=== PATIENT | female | born 1935 | race Caucasian/White ===

== ENCOUNTER → 2017-05-10 | Outpatient (CLI) | payer OTHER ==
[~2017-05-10] MED LIST: REGADENOSON 0.4 MG/5 ML PF SYG IVP SCH
== END | disposition home or self-care (01) ==
LOC: SHCH 08:39
PROVIDERS: ATTEND Internal Medicine Cardiovascular Disease
DX: I50.32 Chronic diastolic (congestive) heart failure (principal)
CPT/HCPCS: 78452; 93017; 96374; A9500 ×2; J2785

== ENCOUNTER → 2018-11-14 | Outpatient (CLI) | payer OTHER | END | disposition home or self-care (01) | LOC: RAH 08:58 | PROVIDERS: ATTEND Internal Medicine | DX: M17.11 Unilateral primary osteoarthritis, right knee (principal) | CPT/HCPCS: 73562 ==

== ENCOUNTER 2020-12-14 23:55 | Emergency (ER) | payer OTHER ==
[~2020-12-14] VITALS: Ht 162.6 cm; Wt 72.6 kg
[~2020-12-14 23:55] MED LIST changes: +AMLO5TAB4 PO; +APIX5TAB PO; +CEPH500B PO; +CLOP75TA14 PO; +LOSA50TA2 PO; +METO50 PO; +OMEP20CA12 PO; +PRAV40TA3 PO; -REGADENOSON 0.4 MG/5 ML PF SYG IVP SCH; +fish oil; +flaxseed
[2020-12-15] MEDS ORDERED: MORPHINE 4 MG SYG IV ONE (02:00)
[2020-12-15] MEDS ORDERED: ONDANSETRON 4MG INJ IVP ONE (02:00)
[2020-12-15 02:11] VITALS: BP 177/60
[2020-12-15 02:32] LABS: APPEARANCE,URINE Clear (CLEAR); BILIRUBIN,URINE Negative (NEGATIVE); COLOR,URINE Yellow (YELLOW); GLUCOSE, URINE (UA) Negative (NEGATIVE); KETONES,URINE Trace mg/dL (NEGATIVE); LEUKOCYTE ESTERASE ,URINE Small (NEGATIVE); NITRATE,URINE Negative (NEGATIVE); OCCULT BLOOD,URINE Negative (NEGATIVE); PROTEIN,URINE Negative (NEGATIVE)
[2020-12-15 02:42] LABS: BACTERIA,URINE Few /HPF (None Seen); RBC,URINE None Seen /HPF (0-1); SQUAMOUS EPITHELIAL CELL,UR Few /HPF (0-2)
[2020-12-15 03:41] VITALS: BP 124/69
[2020-12-15 03:43] LABS: BASOPHILS % (AUTO) 0.5 % (0.0-5.0); HEMATOCRIT 31.8 % (36-48); LYMPHOCYTES % (AUTO) 24.3 % (21.0-51.0); MEAN CORPUSCULAR HEMOGLOBIN 26.5 pg (27.0-33.0); MEAN CORPUSCULAR HGB CONC 30.2 g/dL (32.0-36.0); MEAN CORPUSCULAR VOLUME 87.8 fL (79-99); MONOCYTES % (AUTO) 10.5 % (3.0-13.0); NEUTROPHILS % (AUTO) 62.1 % (40.0-77.0); PLATELET COUNT (AUTO) 239 K/uL (130-400); RED BLOOD CELL COUNT(AUTO) 3.62 MIL/uL (4.00-5.50); RED CELL DISTRIBUTION WIDTH 15.5 % (11.0-15.5); WHITE BLOOD COUNT (AUTO) 7.9 K/uL (4.8-10.8)
[2020-12-15 03:52] LABS: CREATININE 0.9 mg/dL (0.5-1.5); POTASSIUM 4.2 mmol/L (3.5-5.1)
[2020-12-15 03:57] LABS: ALBUMIN 3.4 g/dL (3.5-5.0); BILIRUBIN,TOTAL 0.3 mg/dL (0.2-1.0); TOTAL PROTEIN, SERUM 7.5 g/dL (6.0-8.3)
[2020-12-15] MEDS ORDERED: MORPHINE 2 MG SYG IVP ONE (05:30)
[2020-12-15 06:47] VITALS: BP 155/81
[2020-12-15] MEDS ORDERED: TYL3B PO (06:55)
== END 2020-12-15 07:55 | disposition home or self-care (01) ==
LOC: EDH 23:55
DX: R10.9 Unspecified abdominal pain (principal); E11.9 Type 2 diabetes mellitus without complications; E78.00 Pure hypercholesterolemia, unspecified; I10 Essential (primary) hypertension; I25.2 Old myocardial infarction; I48.91 Unspecified atrial fibrillation; Z79.01 Long term (current) use of anticoagulants; Z79.899 Other long term (current) drug therapy; Z87.442 Personal history of urinary calculi
CPT/HCPCS: 36415; 71046; 74176; 80053; 81001; 83690; 85025; 96374; 96375; 96376; 99285; J2270; J2405

== ENCOUNTER 2020-12-19 09:28 | Inpatient (IN) | payer OTHER ==
[~2020-12-19] VITALS: Ht 157.5 cm; Wt 73.1 kg
[~2020-12-19 09:28] MED LIST changes: +TYL3B PO
[2020-12-19 09:29] VITALS: BP 180/88
[2020-12-19 10:04] LABS: BASOPHILS % (AUTO) 0.4 % (0.0-5.0); EOSINOPHILS % (AUTO) 0.4 % (0.0-8.0); HEMATOCRIT 26.9 % (36-48); LYMPHOCYTES % (AUTO) 26.8 % (21.0-51.0); MEAN CORPUSCULAR HGB CONC 30.5 g/dL (32.0-36.0); MEAN CORPUSCULAR VOLUME 85.4 fL (79-99); MONOCYTES % (AUTO) 15.2 % (3.0-13.0); NEUTROPHILS % (AUTO) 56.4 % (40.0-77.0); PLATELET COUNT (AUTO) 241 K/uL (130-400); RED BLOOD CELL COUNT(AUTO) 3.15 MIL/uL (4.00-5.50); RED CELL DISTRIBUTION WIDTH 15.4 % (11.0-15.5); WHITE BLOOD COUNT (AUTO) 7.7 K/uL (4.8-10.8)
[2020-12-19 10:17] LABS: ALBUMIN 3.2 g/dL (3.5-5.0); BILIRUBIN,TOTAL 0.4 mg/dL (0.2-1.0); CREATININE 0.8 mg/dL (0.5-1.5); POTASSIUM 3.6 mmol/L (3.5-5.1); TOTAL PROTEIN, SERUM 7.2 g/dL (6.0-8.3)
[2020-12-19 10:38] LABS: APPEARANCE,URINE Cloudy (CLEAR); BILIRUBIN,URINE Negative (NEGATIVE); COLOR,URINE Yellow (YELLOW); GLUCOSE, URINE (UA) Negative (NEGATIVE); KETONES,URINE Trace mg/dL (NEGATIVE); LEUKOCYTE ESTERASE ,URINE Negative (NEGATIVE); NITRATE,URINE Positive (NEGATIVE); OCCULT BLOOD,URINE Negative (NEGATIVE); PROTEIN,URINE Trace mg/dL (NEGATIVE)
[2020-12-19 10:49] LABS: BACTERIA,URINE Many /HPF (None Seen); RBC,URINE None Seen /HPF (0-1); SQUAMOUS EPITHELIAL CELL,UR Moderate /HPF (0-2)
[2020-12-19] MEDS ORDERED: DICL100G31 TP (13:04)
[2020-12-19 13:20] VITALS: BP 145/95
[2020-12-19] MEDS ORDERED: IOHEXOL-350 75 ML VIAL IV ONE (13:22)
[2020-12-19] MEDS ORDERED: ONDANSETRON 4MG INJ IV PRN (13:30)
[2020-12-19] MEDS ORDERED: ACETAMINOPHEN 325 MG TAB PO PRN (13:30)
[2020-12-19 13:41] LABS: CRP QUANTITATIVE 5.9 mg/L (0.00-9.0); MAGNESIUM 1.5 mg/dL (1.80-2.40)
[2020-12-19 13:44] LABS: B-TYPE NATRIURETIC PEPTIDE 339 pg/mL (0-100)
[2020-12-19 14:28] LABS: ERYTHROCYTE SEDIMENTATION RATE 50 MM/HR (0-30)
[2020-12-19] MEDS ORDERED: LACTULOSE 20 GM/30 ML UDCUP ONE (14:36)
[2020-12-19] MEDS: LIDOCAINE 5% TOPICAL PATCH TP SCH (14:52)
[2020-12-19] MEDS: BACLOFEN 10 MG TABLET PO SCH ×2 (14:52→21:05)
[2020-12-19] MEDS: CEFTRIAXONE 1G VIAL IVP SCH (14:52)
[2020-12-19] MEDS: DEXAMETHASONE 4 MG TAB PO SCH ×2 (14:52→21:05)
[2020-12-19 15:30] VITALS: BP 139/95
[2020-12-19 17:50] VITALS: BP 139/69
[2020-12-19 20:00] VITALS: BP 121/71
[2020-12-19] MEDS ORDERED: FAMOTIDINE 20MG TAB PO SCH (21:00)
[2020-12-19] MEDS: LACTULOSE 20 GM/30 ML UDCUP PO SCH (21:00)
[2020-12-19] MEDS: GABAPENTIN 100 MG CAPSULE PO SCH (21:04)
[2020-12-19] MEDS: APIXABAN 5 MG TABLET PO SCH (21:04)
[2020-12-19] MEDS: FISH OIL 1000 MG/CAP PO SCH (21:04)
[2020-12-19] MEDS: METOPROLOL TARTRATE 50 MG TAB PO SCH (21:05)
[2020-12-19] MEDS: ATORVASTATIN 10 MG TABLET PO SCH (21:05)
[2020-12-19] MEDS: ACETAMINOPHEN 325 MG TAB PO PRN (21:58)
[2020-12-19] MEDS ORDERED: MAGNESIUM 2GM PREMIX 50ML 50 ML IV ONE (23:27)
[2020-12-19] MEDS ORDERED: METOPROLOL TARTRATE 1 MG/ML 5ML VIAL IV PRN (23:30)
[2020-12-19] MEDS ORDERED: MAGNESIUM 2GM PREMIX 50ML 50 ML IV PRN (23:30)
[2020-12-19 23:52] VITALS: BP 130/67
[2020-12-20 04:00] VITALS: BP 118/65
[2020-12-20 07:30] VITALS: BP 149/85
[2020-12-20] MEDS ORDERED: CLOPIDOGREL 75MG TAB PO SCH (09:00)
[2020-12-20 09:44] LABS: HEMATOCRIT 28.8 % (36-48); MEAN CORPUSCULAR HEMOGLOBIN 26.4 pg (27.0-33.0); MEAN CORPUSCULAR HGB CONC 30.9 g/dL (32.0-36.0); MEAN CORPUSCULAR VOLUME 85.5 fL (79-99); PLATELET COUNT (AUTO) 245 K/uL (130-400); RED BLOOD CELL COUNT(AUTO) 3.37 MIL/uL (4.00-5.50); RED CELL DISTRIBUTION WIDTH 15.5 % (11.0-15.5); WHITE BLOOD COUNT (AUTO) 5.4 K/uL (4.8-10.8)
[2020-12-20 09:56] LABS: CREATININE 0.7 mg/dL (0.5-1.5); POTASSIUM 4.2 mmol/L (3.5-5.1)
[2020-12-20 10:00] LABS: % IRON SATURATION 3.7 % (22-44); IRON, SERUM 19 mcg/dL (50-170); TOTAL IRON BINDING CAPACITY 505 mcg/dL (250-450)
[2020-12-20 10:17] LABS: BASOPHILS % (MANUAL) 1 % (0-2); LYMPHOCYTES % (MANUAL) 25 % (22-44); MAN.DIFF COMMENT-IMPRESSION MANUAL DIFFERENTIAL; MONOCYTES % (MANUAL) 10 % (2-9); PLATELET MORPHOLOGY COMMENT ADEQUATE; SEGMENTED NEUTROPHILS % 64 % (40-70)
[2020-12-20] MEDS: BACLOFEN 10 MG TABLET PO SCH ×3 (10:23→21:57)
[2020-12-20] MEDS: LACTULOSE 20 GM/30 ML UDCUP PO SCH (10:23)
[2020-12-20] MEDS: LOSARTAN 50 MG TABLET PO SCH (10:24)
[2020-12-20] MEDS: APIXABAN 5 MG TABLET PO SCH ×2 (10:25→21:57)
[2020-12-20] MEDS: DEXAMETHASONE 4 MG TAB PO SCH ×3 (10:25→21:56)
[2020-12-20] MEDS: FISH OIL 1000 MG/CAP PO SCH ×2 (10:25→21:56)
[2020-12-20] MEDS: METOPROLOL TARTRATE 50 MG TAB PO SCH ×2 (10:26→21:57)
[2020-12-20] MEDS: GABAPENTIN 100 MG CAPSULE PO SCH ×2 (10:26→21:57)
[2020-12-20] MEDS: PANTOPRAZOLE 40 MG TAB DR PO SCH ×2 (10:27→21:56)
[2020-12-20] MEDS: LIDOCAINE 5% TOPICAL PATCH TP SCH (10:27)
[2020-12-20 11:00] VITALS: BP 138/66
[2020-12-20] MEDS: CEFTRIAXONE 1G VIAL IVP SCH (14:35)
[2020-12-20 16:00] VITALS: BP 98/69
[2020-12-20] MEDS: IRON SUCROSE COMPLEX 100 MG in 0.9%NACL 50ML 50 ML IV SCH (16:28)
[2020-12-20 20:00] VITALS: BP 151/68
[2020-12-20] MEDS: ATORVASTATIN 10 MG TABLET PO SCH (21:56)
[2020-12-21 00:01] VITALS: BP 120/61
[2020-12-21] MEDS ORDERED: HYDROCODONE/ACETAMINOPHEN 5/325 MG TAB PO ONE (03:00)
[2020-12-21] MEDS ORDERED: HYDROCODONE/ACETAMINOPHEN 5/325 MG TAB ONE (03:04)
[2020-12-21 04:00] VITALS: BP 137/82
[2020-12-21 06:08] LABS: BASOPHILS % (AUTO) 0.1 % (0.0-5.0); HEMATOCRIT 26.6 % (36-48); LYMPHOCYTES % (AUTO) 11.3 % (21.0-51.0); MEAN CORPUSCULAR HEMOGLOBIN 25.5 pg (27.0-33.0); MEAN CORPUSCULAR HGB CONC 29.7 g/dL (32.0-36.0); MEAN CORPUSCULAR VOLUME 85.8 fL (79-99); MONOCYTES % (AUTO) 5.8 % (3.0-13.0); NEUTROPHILS % (AUTO) 80.8 % (40.0-77.0); NUCLEATED RED BLOOD CELLS 0.4 % (0.0-0.19); PLATELET COUNT (AUTO) 256 K/uL (130-400); RED CELL DISTRIBUTION WIDTH 15.5 % (11.0-15.5); WHITE BLOOD COUNT (AUTO) 10.3 K/uL (4.8-10.8)
[2020-12-21 06:19] LABS: CREATININE 0.8 mg/dL (0.5-1.5); MAGNESIUM 1.8 mg/dL (1.80-2.40); POTASSIUM 4.1 mmol/L (3.5-5.1)
[2020-12-21] MEDS: INSULIN HUMULIN R 100 UNIT/ML 3ML SQ SCH ×4 (06:43→21:00)
[2020-12-21 07:38] VITALS: BP 138/68
[2020-12-21] MEDS: IRON SUCROSE COMPLEX 100 MG in 0.9%NACL 50ML 50 ML IV SCH (09:46)
[2020-12-21] MEDS: LOSARTAN 50 MG TABLET PO SCH (09:47)
[2020-12-21] MEDS: METOPROLOL TARTRATE 50 MG TAB PO SCH ×2 (09:47→21:30)
[2020-12-21] MEDS: PANTOPRAZOLE 40 MG TAB DR PO SCH ×2 (09:47→21:30)
[2020-12-21] MEDS: FISH OIL 1000 MG/CAP PO SCH ×2 (09:47→21:30)
[2020-12-21] MEDS: BACLOFEN 10 MG TABLET PO SCH ×3 (09:48→21:35)
[2020-12-21] MEDS: GABAPENTIN 100 MG CAPSULE PO SCH ×2 (09:49→21:30)
[2020-12-21] MEDS: LIDOCAINE 5% TOPICAL PATCH TP SCH (09:50)
[2020-12-21 11:50] VITALS: BP 138/57
[2020-12-21] MEDS: CEFTRIAXONE 1G VIAL IVP SCH (14:19)
[2020-12-21] MEDS ORDERED: COMPOUND IV MISC 1 EACH IVSOLN MISC PRN (15:00)
[2020-12-21 15:30] VITALS: BP 130/67
[2020-12-21] MEDS ORDERED: POLYETHYLENE GLYCOL 3350 17 GM POWD.PACK PO ONE (16:30)
[2020-12-21 20:00] VITALS: BP 111/51
[2020-12-21] MEDS: ATORVASTATIN 10 MG TABLET PO SCH (21:30)
[2020-12-21] MEDS: DOCUSATE SODIUM 100 MG CAP PO SCH (21:30)
[2020-12-21] MEDS ORDERED: POLYETHYLENE GLYCOL 3350 17 GM POWD.PACK ONE (23:18)
[2020-12-21] MEDS: POLYETHYLENE GLYCOL 3350 17 GM POWD.PACK PO SCH (23:27)
[2020-12-22 00:03] VITALS: BP 168/78
[2020-12-22] MEDS: TRAMADOL HCL 50 MG TABLET PO PRN ×3 (03:18→18:20)
[2020-12-22 06:21] LABS: BASOPHILS % (AUTO) 0.2 % (0.0-5.0); EOSINOPHILS % (AUTO) 0.1 % (0.0-8.0); HEMATOCRIT 26.5 % (36-48); LYMPHOCYTES % (AUTO) 27.9 % (21.0-51.0); MEAN CORPUSCULAR HEMOGLOBIN 25.6 pg (27.0-33.0); MEAN CORPUSCULAR HGB CONC 29.8 g/dL (32.0-36.0); MONOCYTES % (AUTO) 12.2 % (3.0-13.0); NEUTROPHILS % (AUTO) 57.9 % (40.0-77.0); NUCLEATED RED BLOOD CELLS 0.5 % (0.0-0.19); PLATELET COUNT (AUTO) 242 K/uL (130-400); RED BLOOD CELL COUNT(AUTO) 3.08 MIL/uL (4.00-5.50); RED CELL DISTRIBUTION WIDTH 15.9 % (11.0-15.5); WHITE BLOOD COUNT (AUTO) 13.6 K/uL (4.8-10.8)
[2020-12-22] MEDS: INSULIN HUMULIN R 100 UNIT/ML 3ML SQ SCH ×4 (06:43→21:41)
[2020-12-22 08:18] VITALS: BP 148/66
[2020-12-22] MEDS: LOSARTAN 50 MG TABLET PO SCH (10:33)
[2020-12-22] MEDS: DOCUSATE SODIUM 100 MG CAP PO SCH ×2 (10:33→21:00)
[2020-12-22] MEDS: BACLOFEN 10 MG TABLET PO SCH ×3 (10:33→21:38)
[2020-12-22] MEDS: LIDOCAINE 5% TOPICAL PATCH TP SCH (10:34)
[2020-12-22] MEDS: GABAPENTIN 100 MG CAPSULE PO SCH ×2 (10:34→21:38)
[2020-12-22] MEDS: METOPROLOL TARTRATE 50 MG TAB PO SCH ×2 (10:34→21:38)
[2020-12-22] MEDS: PANTOPRAZOLE 40 MG TAB DR PO SCH (10:34)
[2020-12-22] MEDS: FISH OIL 1000 MG/CAP PO SCH ×2 (10:34→21:38)
[2020-12-22] MEDS: IRON SUCROSE COMPLEX 100 MG in 0.9%NACL 50ML 50 ML IV SCH (10:35)
[2020-12-22] MEDS: POLYETHYLENE GLYCOL 3350 17 GM POWD.PACK PO SCH (10:51)
[2020-12-22 11:35] VITALS: BP 150/83
[2020-12-22] MEDS: CEFTRIAXONE 1G VIAL IVP SCH (14:31)
[2020-12-22] MEDS: PANTOPRAZOLE 40 MG/VIAL IVP SCH (14:50)
[2020-12-22 16:56] VITALS: BP 106/57
[2020-12-22 20:14] VITALS: BP 136/78
[2020-12-22] MEDS: ATORVASTATIN 10 MG TABLET PO SCH (21:39)
[2020-12-22] MEDS: PANTOPRAZOLE 40MG INJ 80 MG in 0.9%NACL 100ML 100 ML IVP SCH (21:41)
[2020-12-22 23:54] VITALS: BP 113/56
[2020-12-23] VITALS (19 sets, daily range): BP systolic 112–151; BP diastolic 43–113
[2020-12-23] MEDS: INSULIN HUMULIN R 100 UNIT/ML 3ML SQ SCH ×4 (06:55→20:53)
[2020-12-23 08:50] LABS: BASOPHILS % (AUTO) 0.6 % (0.0-5.0); EOSINOPHILS % (AUTO) 1.9 % (0.0-8.0); HEMATOCRIT 28.5 % (36-48); MEAN CORPUSCULAR HEMOGLOBIN 25.8 pg (27.0-33.0); MEAN CORPUSCULAR HGB CONC 29.5 g/dL (32.0-36.0); MEAN CORPUSCULAR VOLUME 87.7 fL (79-99); MONOCYTES % (AUTO) 13.1 % (3.0-13.0); NEUTROPHILS % (AUTO) 48.4 % (40.0-77.0); NUCLEATED RED BLOOD CELLS 1.9 % (0.0-0.19); PLATELET COUNT (AUTO) 313 K/uL (130-400); RED BLOOD CELL COUNT(AUTO) 3.25 MIL/uL (4.00-5.50); RED CELL DISTRIBUTION WIDTH 16.5 % (11.0-15.5); WHITE BLOOD COUNT (AUTO) 14.3 K/uL (4.8-10.8)
[2020-12-23] MEDS: FISH OIL 1000 MG/CAP PO SCH ×2 (09:00→19:59)
[2020-12-23] MEDS: BACLOFEN 10 MG TABLET PO SCH ×3 (09:00→20:00)
[2020-12-23] MEDS: GABAPENTIN 100 MG CAPSULE PO SCH ×2 (09:00→19:59)
[2020-12-23] MEDS: DOCUSATE SODIUM 100 MG CAP PO SCH ×2 (09:00→19:59)
[2020-12-23] MEDS: LOSARTAN 50 MG TABLET PO SCH (09:00)
[2020-12-23 09:34] LABS: ALBUMIN 2.9 g/dL (3.5-5.0); BILIRUBIN,TOTAL 0.4 mg/dL (0.2-1.0); CREATININE 0.8 mg/dL (0.5-1.5); POTASSIUM 3.7 mmol/L (3.5-5.1); THYROID STIMULATING HORMONE 4.39 uIU/mL (0.36-3.74); TOTAL PROTEIN, SERUM 6.6 g/dL (6.0-8.3)
[2020-12-23] MEDS: PANTOPRAZOLE 40MG INJ 80 MG in 0.9%NACL 100ML 100 ML IVP SCH (09:40)
[2020-12-23] MEDS: LIDOCAINE 5% TOPICAL PATCH TP SCH (09:41)
[2020-12-23] MEDS: METOPROLOL TARTRATE 50 MG TAB PO SCH ×2 (09:41→20:01)
[2020-12-23] MEDS: IRON SUCROSE COMPLEX 100 MG in 0.9%NACL 50ML 50 ML IV SCH (09:41)
[2020-12-23 12:16] LABS: INR 1.18 (0.85-1.15); PROTHROMBIN TIME 12.7 SEC (9.6-11.6)
[2020-12-23] MEDS ORDERED: PROPOFOL 10 MG/ML 20ML VIAL IV ONE (13:00)
[2020-12-23] MEDS: PANTOPRAZOLE 40 MG/VIAL IVP SCH (13:00)
[2020-12-23] MEDS ORDERED: LIDOCAINE PF 100MG/5ML (2%) SYRINGE 5ML ONE (13:00)
[2020-12-23] MEDS: CEFTRIAXONE 1G VIAL IVP SCH (14:09)
[2020-12-23] MEDS: ATORVASTATIN 10 MG TABLET PO SCH (20:00)
[2020-12-23] MEDS: ACETAMINOPHEN 325 MG TAB PO PRN (20:01)
[2020-12-23] MEDS: TRAMADOL HCL 50 MG TABLET PO PRN (23:23)
[2020-12-24 00:32] VITALS: BP 111/61
[2020-12-24 04:32] VITALS: BP 143/75
[2020-12-24] MEDS: INSULIN HUMULIN R 100 UNIT/ML 3ML SQ SCH ×2 (05:58→11:30)
[2020-12-24 07:41] LABS: BASOPHILS % (AUTO) 0.5 % (0.0-5.0); EOSINOPHILS % (AUTO) 3.2 % (0.0-8.0); HEMATOCRIT 29.2 % (36-48); LYMPHOCYTES % (AUTO) 24.7 % (21.0-51.0); MEAN CORPUSCULAR HEMOGLOBIN 26.2 pg (27.0-33.0); MEAN CORPUSCULAR HGB CONC 29.8 g/dL (32.0-36.0); MONOCYTES % (AUTO) 11.4 % (3.0-13.0); NEUTROPHILS % (AUTO) 57.5 % (40.0-77.0); NUCLEATED RED BLOOD CELLS 0.6 % (0.0-0.19); PLATELET COUNT (AUTO) 267 K/uL (130-400); RED BLOOD CELL COUNT(AUTO) 3.32 MIL/uL (4.00-5.50); RED CELL DISTRIBUTION WIDTH 17.5 % (11.0-15.5); WHITE BLOOD COUNT (AUTO) 9.7 K/uL (4.8-10.8)
[2020-12-24 08:00] VITALS: BP 150/78
[2020-12-24 08:02] LABS: ALBUMIN 2.8 g/dL (3.5-5.0); BILIRUBIN,TOTAL 0.4 mg/dL (0.2-1.0); CREATININE 0.8 mg/dL (0.5-1.5); MAGNESIUM 1.8 mg/dL (1.80-2.40); PHOSPHORUS 4.6 mg/dL (2.5-4.9); POTASSIUM 4.2 mmol/L (3.5-5.1); TOTAL PROTEIN, SERUM 6.6 g/dL (6.0-8.3)
[2020-12-24 08:05] LABS: INR 1.11 (0.85-1.15)
[2020-12-24] MEDS: LIDOCAINE 5% TOPICAL PATCH TP SCH (10:01)
[2020-12-24] MEDS: POLYETHYLENE GLYCOL 3350 17 GM POWD.PACK PO SCH (10:01)
[2020-12-24] MEDS: IRON SUCROSE COMPLEX 100 MG in 0.9%NACL 50ML 50 ML IV SCH (10:02)
[2020-12-24] MEDS: DOCUSATE SODIUM 100 MG CAP PO SCH (10:03)
[2020-12-24] MEDS: GABAPENTIN 100 MG CAPSULE PO SCH (10:03)
[2020-12-24] MEDS: BACLOFEN 10 MG TABLET PO SCH ×2 (10:03→14:00)
[2020-12-24] MEDS: FISH OIL 1000 MG/CAP PO SCH (10:03)
[2020-12-24] MEDS: LOSARTAN 50 MG TABLET PO SCH (10:04)
[2020-12-24] MEDS: METOPROLOL TARTRATE 50 MG TAB PO SCH (10:04)
[2020-12-24 12:00] VITALS: BP 146/73
[2020-12-24] MEDS: PANTOPRAZOLE 40 MG/VIAL IVP SCH (12:01)
[2020-12-24] MEDS ORDERED: CEPH500B PO (13:46)
[2020-12-24] MEDS: CEFTRIAXONE 1G VIAL IVP SCH (14:00)
== END 2020-12-24 18:00 | disposition home or self-care (01) | DRG 552 ==
LOC: EDH 09:28 → OBSVTOIN 13:06 → EDHIP 13:06 → 3BH 17:53
PROVIDERS: ADMIT Internal Medicine; ATTEND Internal Medicine
PROC: 0DJ08ZZ Inspection of Upper Intestinal Tract, Via Natural or Artificial Opening Endoscopic (ICD-10-PCS; principal; 2020-12-23)
DX: M62.830 Muscle spasm of back (principal); D68.59 Other primary thrombophilia; D62 Acute posthemorrhagic anemia; M54.6 Pain in thoracic spine; K59.03 Drug induced constipation; I48.91 Unspecified atrial fibrillation; I10 Essential (primary) hypertension; E78.5 Hyperlipidemia, unspecified; I25.10 Atherosclerotic heart disease of native coronary artery without angina pectoris; R54 Age-related physical debility; K31.89 Other diseases of stomach and duodenum; B96.20 Unspecified Escherichia coli [E. coli] as the cause of diseases classified elsewhere; Z60.2 Problems related to living alone; T40.2X5A Adverse effect of other opioids, initial encounter; Y92.89 Other specified places as the place of occurrence of the external cause; Z90.710 Acquired absence of both cervix and uterus; I25.2 Old myocardial infarction; Z83.3 Family history of diabetes mellitus; Z82.49 Family history of ischemic heart disease and other diseases of the circulatory system
CPT/HCPCS: 36415; 43235; 71045; 71275; 76770; 80048; 80053; 81001; 82150; 82270; 82550; 82728; 82948; 83540; 83550; 83605; 83690; 83735; 83880; 84100; 84145; 84443; 84484; 85025; 85378; 85610; 85651; 86140; 87077; 87088; 87186; 93005; A4606; C9113; G0378; J0696; J1756; J1815; J2001; J2704; J3475; J3490; J7030; J8540; Q9967